=== PATIENT | male | born 1940 | race Hispanic/Latino ===

== ENCOUNTER 2017-06-05 10:21 | Observation (INO) | payer MEDICARE, MEDICAID ==
[2017-06-05 10:47] LABS: #Eosinphils 0.2 thou/uL (0.0-0.7); #Monocytes 0.9 thou/uL (0.11-0.59); %Basophils 0.4 % (0.0-1.0); %Lymphocytes 12.3 % (21.0-51.0); %Monocytes 10.8 % (0.0-10.0); %Neutrophils 74.5 % (42.0-75.0); Hemoglobin 15.9 g/dL (14.0-18.0); Mean Corpuscular HGB CONC 33.6 g/dL (32.0-36.0); Mean Corpuscular Hemoglobin 31.8 pg (27.0-31.0); Mean Corpuscular Volume 94.5 fl (80.0-94.0); Mean Platelet Volume 6.1 fL (7.4-10.4); Platelet Count 268 thou/uL (130-400); RBC Distribution Width 12.4 % (11.5-14.5); Red Blood Cell (RBC) Count 5.02 mill/uL (4.70-6.10); White Blood Cell (WBC) Count 8.1 thou/uL (4.8-10.8)
[2017-06-05 11:02] LABS: ALT (SGPT) 34 U/L (8-55); AST (SGOT) 21 U/L (5-34); Albumin 3.8 g/dL (3.4-4.8); Alkaline Phosphatase 96 U/L (40-150); Anion Gap 12 mmol/L (10-20); BUN (Urea Nitrogen) 15 mg/dL (8.4-25.7); Bilirubin, Total 0.6 mg/dL (0.2-1.2); CK (CPK) 42 U/L (30-200); Calc. Creatinine Clearance 0 mL/min (70-130); Carbon Dioxide 23 mmol/L (23-31); Chloride 107 mmol/L (98-107); Estimated GFR-MDRD 57; Globulin 3.1 g/dL (2.4-3.5); Glucose 175 mg/dL (83-110); Potassium 3.8 mmol/L (3.5-5.1); Protein, Total 6.9 g/dL (5.8-8.1); Sodium 138 mmol/L (136-145)
[2017-06-05 11:05] LABS: CKMB 0.7 ng/mL (0-6.6); Troponin I Less than 0.010 ng/mL (< 0.028)
[2017-06-05] MEDS ORDERED: Meclizine HCl 25 MG TAB ONE (11:23)
--- NOTE | 2017-06-05 12:11 | CT ---
CT OF THE BRAIN WITHOUT CONTRAST: History: Dizziness. Comparison: None. 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 There is mild to moderate chronic small vessel white matter ischemic change. No acute infarct , hemorrhage, or hydrocephalus is present. Skull and extracranial soft tissues are unremarkable appea ring. IMPRESSION: 1. No acute intracranial abnormality. 2. Chronic ischemic change as above. POS: NABEEL
[2017-06-05] MEDS ORDERED: Bisacodyl 5 MG TAB PO PRN (14:58)
[2017-06-05] MEDS ORDERED: Ondansetron HCl/PF 4 MG/2 ML Vial IVP PRN (14:58)
[2017-06-05] MEDS ORDERED: Ondansetron ODT 4 MG TAB PO PRN (14:58)
[2017-06-05] MEDS ORDERED: Acetaminophen 650 MG Suppository PR PRN (14:58)
[2017-06-05] MEDS ORDERED: Acetaminophen 325 MG TAB PO PRN (14:58)
[2017-06-05 15:32] VITALS: BP 177/86; TEMP 98.5; BMI 28.3
--- NOTE | 2017-06-05 16:49 | MRI ---
MRI BRAIN NONCONTRAST: 06/05/17 HISTORY: Dizziness, nystagmus. FINDINGS: There is no evidence of acute intracranial hemorrhage or infarct. chronic ischemic small vessel disea se is apparent throughout the periventricular white matter of each cerebral hemisphere. Old lacunar i nfarcts are noted at the basal ganglia. There is no mass effect or shift of midline structures. IMPRESSION: No acute intracranial abnormalities are demonstrated. POS: BASILIO
[2017-06-05] MEDS ORDERED: Meclizine HCl 25 MG TAB PO PRN (17:10)
[2017-06-05] MEDS ORDERED: Docusate 100 MG CAP PO SCH (21:00)
--- NOTE | 2017-06-05 21:53 | CON ---
DATE OF CONSULTATION: 06/05/2017 CONSULTING PHYSICIAN: Hospitalist Service. IMPRESSION: Acute vertigo with headache and nausea suggestive of either a cerebellar stroke or inner ear issue such as vestibular neuronitis. PLAN: MRI of the brain. HISTORY OF PRESENT ILLNESS: Mr. Rea is a 76-year-old male with a past history of hyperten maire, who fell on Friday. He lost his balance due to acute onset of dizziness. He struck his head o n the floor. He did not seek medical attention right away. He continued to have some headache and n ausea. He did not note any lateralized weakness or numbness. There was no double vision or slurred speech. His symptoms have improved somewhat. He has never had anything like this before. PAST MEDICAL HISTORY: Hypertension. SOCIAL HISTORY: No tobacco use. ALLERGIES: None reported. MEDICATIONS: Reviewed. FAMILY HISTORY: Noncontributory. REVIEW OF SYSTEMS: No prior history of any neurologic symptoms. PHYSICAL EXAMINATION: GENERAL: He is a healthy-appearing elderly gentleman, in no distress. HEENT: Pupils equal and reactive. Conjunctivae clear. Oropharynx is clear. NECK: Supple. EXTREMITIES: No cyanosis. NEUROLOGIC: He is alert and cooperative. His speech is fluent and clear. Cranial nerves were intac t with only a notable finding of asymmetric nystagmus and left gaze producing a horizontally beating eye movement. Motor exam showed symmetric strength. There was no fix or drift, no tremor or dysmetr ia was appreciated. Sensation was intact to touch. Gait was not tested. CT scan of the brain showed some chronic small vessel ischemic changes. SUMMARY: This is an elderly gentleman presents with acute vertigo raising concern for a stroke. Fur ther evaluation with MRI appears needed. Further evaluation if positive with carotid ultrasound and echocardiogram would be appropriate.
--- NOTE | 2017-06-05 23:33 | DIS ---
PRIMARY CARE PHYSICIAN: SHEBA Horowitz DIAGNOSES ON ADMISSION: 1. Closed head injury. 2. Vertigo. 3. Hypertension. 4. Elevated brain natriuretic peptide. DISCHARGE DIAGNOSES: 1. Closed head injury. 2. Concussion with resulting vertigo. 3. Hypertension. 4. Elevated brain natriuretic peptide. PROCEDURES: 1. CT of the brain showing old ischemic disease, but no acute changes. 2. MRI of the brain showing no acute stroke, hemorrhage, or other abnormality. LABORATORY DATA: Lab work notable for brain natriuretic peptide of 207. SUMMARY OF HOSPITAL COURSE: This is a 76-year-old male who was seen in the emergency room f or headache and vertigo. The patient initially seemed to be reporting vertigo leading to a fall and head injury in the ER. When I spoke to him with the senior web developer phone after he came up to the floor, the patient was very clear that the vertigo and headache did not start until after he tripped over so me furniture and hit his forehead. He had nausea and vomiting initially that resolved and then he davila s had some headache and vertigo ever since. The patient has actually done a little bit better with suzette hurtado in the emergency room, was able to walk steadily around the room during my exam. He had CT and MRI of the brain with the above results. Dr. Carter was consulted and discussion with him, he b elieves this is most likely a concussion with the resulting vertigo. The patient is disabled to get around, so he is safe for discharge home. He has been instructed to rest and not do anything that ex acerbates it and to give his brain time to heal and to follow up with his primary care physician next week. DISCHARGE MANAGEMENT: Discharged home. Follow up with primary care physician in 1 week. ACTIVITY: As tolerated. Do not do anything that causes the pain or dizziness to be worse. DIET: Healthy heart, low sodium diet. FOLLOWUP: The patient does need to follow up with his primary care physician about an elevated brain natriuretic peptide. DISCHARGE MEDICATIONS: 1. Coreg 6.25 mg twice a day. 2. Meclizine 25 mg every 8 hours as needed for dizziness, 30 tablets dispensed. 3. Acetaminophen extra strength 1000 mg every 6 hours as needed for headache, 30 tablets dispensed.
--- NOTE | 2017-06-06 00:02 | HP ---
PRIMARY CARE PHYSICIAN: Milagro SCRUGGS LANGUAGE: Senegalese speaking, minimal Latvian. Senegalese customer account specialist phone used during history a nd physical. CHIEF COMPLAINT: Dizziness and head injury. HISTORY OF PRESENT ILLNESS: This is a 76-year-old male who reports that on Friday, 3 days a go, the patient was getting out of bed to go to the bathroom, he tripped on some furniture, fell and hit the right side of his forehead against the floor. The patient reports that after the impact he h ad a significant headache, nausea and vomiting x1. The nausea and vomiting resolved, but he has had persistent vertigo ever since he hit his head. He says that the room feels like spinning around him. He feels unsteady on his feet. He went to his primary care physician and he told him to take Tylen ol for headache and he has not gotten any better for the last 3 days. So he came into the emergency room. In the emergency room, he was noted to have some nystagmus and had a negative CT of the head a nd so they put him in observation in the hospital. PAST MEDICAL HISTORY: Hypertension. PAST SURGICAL HISTORY: 1. Left nephrectomy. 2. Bilateral inguinal hernia repair. FAMILY HISTORY: No family history of stroke, diabetes or hypertension. SOCIAL HISTORY: No history of tobacco use, no history of alcohol or illicit drug use. The patient i s and lives with his . ALLERGIES: No known drug allergies. MEDICATIONS: Carvedilol 6.25 mg twice a day. REVIEW OF SYSTEMS: Constitutional: No fevers or chills. Eyes: No double vision or blurred vision. HEENT: He has had no congestion, drainage. A little bit of sore throat over the last couple of days. Cardiovascular: No chest pain, palpitations or racing heart. Pulmonary: Mild cough over the last couple of days. No shortness of breath, wheezing, or chest tightness. Gastrointestinal: No abdominal pain, no furt her nausea or vomiting as described in the HPI. No diarrhea or constipation. Genitourinary: No dys uria or hematuria. Musculoskeletal: He has pain to his right forehead where he impacted it, no neck pain, no back pain, no injuries to his extremities or any other musculoskeletal pain. Skin: He has an abrasion, contusion to the right forehead. Otherwise no skin rashes or other lesions that he has noticed. Neurologic: See HPI. PHYSICAL EXAMINATION: VITAL SIGNS: Blood pressure 177/86, pulse 66, respirations 17, O2 sat 98% on room air, temperature 9 8.5. GENERAL: This is a well-developed, well-nourished male in no apparent distress. HEENT: Pupils equal, round, and reactive to light. Oropharynx clear without lesions, erythema or ex udate. NECK: Supple, no lymphadenopathy, no thyroid nodules or enlargement, no JVD, no neck tenderness. He ad exam, patient does have a contusion with mild swelling on his right forehead with a little bit of abrasion to the skin, but no laceration. There is no bony deformity here. HEART: Regular rate and rhythm, no murmurs, rubs or gallops. LUNGS: Clear to auscultation bilaterally, no wheezes, crackles or rhonchi. ABDOMEN: Soft, nontender to palpation, normoactive bowel sounds, no hepatosplenomegaly or other mass es. EXTREMITIES: No clubbing, cyanosis or edema. SKIN: No rashes or other lesions besides the abrasion to his right forehead. NEUROLOGIC: On cranial nerve exam, patient does have nystagmus passing in segments to the left with leftward gaze, not with rightward gaze and some mild rotary component to it. Otherwise, his cranial nerves are intact and equal bilaterally. His deep tendon reflexes are equal in all extremities. He has good strength in all extremities. He has negative cerebellar exam. He was able to stand for me, which is better than he was able to do in the emergency room and states he feels better after the me clizine. He was able to stand and walk to the wheelchair to go down to MRI without any significant u nsteadiness or severe worsening of his symptoms. PSYCHIATRIC: Alert and oriented x3, normal mood an d affect. LABORATORY DATA: CBC within normal limits. Complete metabolic panel within normal limits except for glucose of 175 to the nonfasting specimen. Cardiac markers negative x1. Brain natriuretic peptide elevated at 207. CT of the brain, I did review the radiologist's report. It shows no evidence of in tracranial hemorrhage or other abnormality. There are some chronic ischemic changes; however, with a remote lacunar infarct to the right globus pallidusright caudate head and left thalamus. ASSESSMENT AND PLAN: 1. Closed head injury with a postconcussive syndrome. It is likely the cause of patient's vertigo a nd his initial nausea and vomiting that is now resolved as well as his persistent headache. It is un likely that he had any sort of a stroke as his symptoms did not start until after he tripped and hit his head. We are getting an MRI to rule out any sort of other etiology of these symptoms. Also Neur ology has been consulted. The MRI is negative. If Neurology agrees, then we can discharge him home and his can help care for him. He is able to get around okay and treat his headaches with Tylen ol for pain control and then rest. 2. Hypertension. Resume patient's home medications. 3. Elevated brain natriuretic peptide. The patient will need to follow up on this as an outpatient with his primary care doctor and possibly he will need an echocardiogram in the future. 4. Gastrointestinal prophylaxis. Put the patient on Pepcid twice a day and give him Zofran as neede d for nausea and vomiting. 5. Deep venous thrombosis prophylaxis. Sequential compression devices and TEDs while in bed and Darío enox subcutaneous. CODE STATUS: Patient is a FULL CODE.
[2017-06-06] MEDS ORDERED: Enoxaparin Sodium 40 MG/0.4 ML SYRINGE SC SCH (09:00)
--- NOTE | 2017-06-06 12:18 | EKG ---
Test Reason : DIZZY Blood Pressure : / mmHG Vent. Rate : 066 BPM Atrial Rate : 066 BPM P-R Int : 142 ms QRS Dur : 088 ms QT Int : 352 ms P-R-T Axes : 060 -38 011 degrees QTc Int : 369 ms Normal sinus rhythm Left axis deviation Nonspecific T wave abnormality Abnormal ECG Confirmed by STEVEN DUPREE ([id number]), editor newspaper NIDIA PEGUERO ([id number]) on 06/06/2017 12:18:25 PM Referred By: Confirmed By:STEVEN DUPREE
== END 2017-06-05 17:59 | disposition home or self-care (01) ==
LOC: ERS 10:21 → 2SE 14:53
PROVIDERS: ADMIT Emergency Medicine; ATTEND Emergency Medicine
DX: S06.0X0A Concussion without loss of consciousness, initial encounter (principal); I10 Essential (primary) hypertension; R79.89 Other specified abnormal findings of blood chemistry; H55.00 Unspecified nystagmus; R42 Dizziness and giddiness; W01.190A Fall on same level from slipping, tripping and stumbling with subsequent striking against furniture, initial encounter; Z79.899 Other long term (current) drug therapy; Z90.5 Acquired absence of kidney; Z98.890 Other specified postprocedural states
CPT/HCPCS: 36415; 70450; 70551; 80053; 82553; 83880; 84484; 85025; 93005

== ENCOUNTER 2017-06-07 16:37 | Emergency (ER) | payer MEDICARE, MEDICAID ==
[2017-06-07] MEDS ORDERED: Ondansetron ODT 8 MG TAB ONE (19:18)
== END 2017-06-07 19:58 | disposition home or self-care (01) ==
LOC: ERS 16:37
DX: F07.81 Postconcussional syndrome (principal); G44.309 Post-traumatic headache, unspecified, not intractable; I10 Essential (primary) hypertension; Z79.899 Other long term (current) drug therapy
CPT/HCPCS: 96372

== ENCOUNTER 2017-10-08 08:13 | Outpatient (CLI) | payer MEDICARE, MEDICAID | END 2017-10-08 08:14 | disposition home or self-care (01) | LOC: BICRAD 08:13 | PROVIDERS: ATTEND Internal Medicine | DX: S39.012A Strain of muscle, fascia and tendon of lower back, initial encounter (principal); M47.896 Other spondylosis, lumbar region | CPT/HCPCS: 72100 ==

== ENCOUNTER 2017-11-03 13:27 | Emergency (ER) | payer MEDICARE, MEDICAID ==
[2017-11-03] MEDS ORDERED: Cyclobenzaprine 10 MG TAB ONE (14:57)
== END 2017-11-03 16:02 | disposition home or self-care (01) ==
LOC: ERS 13:27
DX: M54.5 Low back pain (principal); I10 Essential (primary) hypertension; Z79.899 Other long term (current) drug therapy
CPT/HCPCS: 99283

== ENCOUNTER 2017-12-05 08:56 | Observation (INO) | payer MEDICARE, MEDICAID ==
[2017-12-05] MEDS ORDERED: Promethazine HCl 25 MG/ML VIAL ONE (09:27)
[2017-12-05] MEDS ORDERED: Meclizine HCl 25 MG TAB ONE (09:27)
[2017-12-05 10:27] LABS: #Basophils 0.1 thou/uL (0.0-0.2); #Eosinphils 0.1 thou/uL (0.0-0.7); #Lymphocytes 2.4 thou/uL (1.20-3.40); #Monocytes 0.8 thou/uL (0.11-0.59); #Neutrophils 6.9 thou/uL (1.40-6.50); %Basophils 0.7 % (0.0-1.0); %Eosinophils 1.2 % (0.0-10.0); %Lymphocytes 23.6 % (21.0-51.0); %Monocytes 7.4 % (0.0-10.0); %Neutrophils 67.1 % (42.0-75.0); Hemoglobin 16.2 g/dL (14.0-18.0); Mean Corpuscular HGB CONC 34.3 g/dL (32.0-36.0); Mean Corpuscular Hemoglobin 31.4 pg (27.0-31.0); Mean Corpuscular Volume 91.5 fL (78.0-98.0); Mean Platelet Volume 6.5 fL (7.4-10.4); Platelet Count 258 thou/uL (130-400); RBC Distribution Width 12.4 % (11.5-14.5); Red Blood Cell (RBC) Count 5.17 mill/uL (4.70-6.10); White Blood Cell (WBC) Count 10.3 thou/uL (4.8-10.8)
[2017-12-05 10:35] LABS: ALT (SGPT) 23 U/L (8-55); AST (SGOT) 20 U/L (5-34); Albumin 4.1 g/dL (3.4-4.8); Alkaline Phosphatase 99 U/L (40-150); Anion Gap 10 mmol/L (10-20); BUN (Urea Nitrogen) 21 mg/dL (8.4-25.7); Calc. Creatinine Clearance 0 mL/min (70-130); Calcium 9.1 mg/dL (7.8-10.44); Carbon Dioxide 23 mmol/L (23-31); Chloride 108 mmol/L (98-107); Estimated GFR-MDRD 47; Globulin 3.4 g/dL (2.4-3.5); Glucose 162 mg/dL (83-110); Potassium 4.1 mmol/L (3.5-5.1); Protein, Total 7.5 g/dL (5.8-8.1); Sodium 137 mmol/L (136-145)
--- NOTE | 2017-12-05 11:07 | RAD ---
PORTABLE CHEST: HISTORY: Headache. COMPARISON: 09/28/13. FINDINGS: Density in the left lung base obscuring the CP angle could represent infiltrate or atelectasis. Lung phelan otherwise appear clear. Calcified nodular densities overlying the left upper lung are stable . No evidence of vascular congestion or edema. Heart and mediastinum are unremarkable. IMPRESSION: Question atelectasis or infiltrate in the left lung base. POS: [facility]
--- NOTE | 2017-12-05 11:16 | CT ---
CT HEAD WITHOUT CONTRAST: Date: 12/05/17 Multiple axial tomograms obtained through the head without IV enhancement. INDICATION: Hypertension. Dizziness. COMPARISON: CT head dated 06/05/17. FINDINGS: The ventricles remain normal size and position. Moderate to severe chronic ischemic white matter bruno ges are again noted. Evidence of old lacunar infarcts are again seen involving bilateral basal gangli a and left thalamus. No evidence of acute hemorrhage. No evidence of acute cortical infarct or mass. Sinuses and mastoids remain clear. IMPRESSION: Moderate to severe chronic ischemic white matter changes and evidence of old lacunar infarcts. No acu te hemorrhage identified. POS: NABEEL
--- NOTE | 2017-12-05 13:39 | HP ---
PRIMARY CARE PHYSICIAN: [facility] call admission. REASON FOR ADMISSION: Hypertensive urgency, dizziness. HISTORY OF PRESENT ILLNESS: A 76-year-old male who is Solomon Islander speaking only. History obtained with help of concrete products dispatcher. The patient has history of hypertension. He came to the emergency room with a complaint of dizziness, headache, nausea and vomiting. He describes headache localized in the front of the head. He describes dizziness with changing his position, associated with nausea and vomiting. The patient was having difficulty walking to the bathroom, but he was not unsteady. He did not have any fall. He denies any focal motor symptoms. He denies any diarrhea, abdominal pain, constipation , melena. He denies any UTI symptoms. He denies any chest pain, palpitation. He denies any dyspnea. When he presented to emergency room, his blood pressure was 219/120. The patient reports that he took morning medicine for his blood pressure, but after that he threw out with vomiting and his blood pressure was going up. In the emergency room, the patient had CT brain which was negative. He was given meclizine. The patient is being admitted to telemetry floor for observation for dizziness and for further evaluation. The patient did not have any recent upper respiratory infection. He denies any tinnitus. He denies any neck pain. He denies any fall. REVIEW OF SYSTEMS: The following complete review of systems was negative, unless otherwise mentioned in the HPI or below: Constitutional: Weight loss or gain, ability to conduct usual activities. Skin: Rash, itching. Eyes: Double vision, pain. ENT/Mouth: Nose bleeding, neck stiffness, pain, tenderness. Cardiovascular: Palpitations, dyspnea on exertion, orthopnea. Respiratory: Shortness of breath, wheezing, cough, hemoptysis, fever or night sweats. Gastrointestinal: Poor appetite, abdominal pain, heartburn, nausea, vomiting, constipation, or diarrhea. Genitourinary: Urgency, frequency, dysuria, nocturia. Musculoskeletal: Pain, swelling. Neurologic/Psychiatric: Anxiety, depression. Allergy/Immunologic: Skin rash, bleeding tendency. Please see my HPI for pertinent positive and negative. All other review of systems reviewed and negative except as mentioned in the HPI. PAST MEDICAL HISTORY: Hypertension, history of renal cell carcinoma that required nephrectomy on the left side. PAST SURGICAL HISTORY: Nephrectomy on the left side. Bilateral inguinal hernia repair. PAST PSYCHIATRY HISTORY: Reviewed and negative SOCIAL HISTORY: Patient is . His is present at bedside. No history of tobacco, alcohol or illicit drug abuse. FAMILY HISTORY: No strong family history of premature coronary artery disease, stroke or cancer. ALLERGIES: No known drug allergy. CURRENT HOME MEDICATIONS: Coreg 6.25 mg p.o. b.i.d. EMERGENCY ROOM COURSE: Patient is given IV fluid, Phenergan 12.5 mg, meclizine 50 mg. PHYSICAL EXAMINATION: VITAL SIGNS: On arrival, blood pressure was 219/120, pulse 89, respiratory rate 20, temperature 97.4, saturation 91% on room air, weight 81.6 kilograms. GENERAL: The patient is currently alert, awake, no obvious acute distress. HEENT: Head is normocephalic, atraumatic. Eyes; pupils round, reactive to light. Horizontal nystagmus noted. ENT: Oropharynx within normal limits. No pharyngeal erythema, no exudate. Ear examination is normal. NECK: Supple, no JVD, no thyromegaly, no carotid bruit. LUNGS: Clear to auscultation without any rhonchi or rales. CARDIAC: S1, S2 regular without any murmur. ABDOMEN: Soft, bowel sounds present, nontender, nondistended. No organomegaly , no mass, no suprapubic tenderness. BACK: Unremarkable, no CVA tenderness. EXTREMITIES: Upper extremity passive movement of all joints are normal. Lower extremities: No edema. Good peripheral pulsation. SKIN: No skin rash. HEMATOLOGIC: No lymphadenopathy. PSYCHIATRIC: Normal affect. NEUROLOGIC: The patient is alert, oriented x3. Cranial nerves II-XII intact except horizontal nystagmus. Motor 5/5 in all 4 limbs. Sensation bilaterally symmetrical. Reflexes bilaterally symmetrical. No cerebellar sign. Plantar bilateral flexor. PSYCHIATRIC: Normal affect. SIGNIFICANT LABORATORY DATA: EKG showing normal sinus rhythm, incomplete RBBB pattern. Chest x-ray showing questionable atelectasis in the left lung base. CT brain based on my review, no acute intracranial process. CBC: WBC 10.3, hemoglobin 16.2, platelet 258. BMP; sodium 137, potassium 4.1, chloride 108, carbon dioxide 23, anion gap 10, BUN 21, creatinine 1.46, glucose 162, calcium 9.1. LFT: AST 20, ALT 23, alkaline phosphatase 99, albumin 4.1. ASSESSMENT AND PLAN: 1. Dizziness, most likely based on clinical assessment I am suspecting that this patient has benign positional vertigo. Given horizontal nystagmus and his previous history of renal cell carcinoma, metastatic lesion needs to be excluded. Does not suspect any cerebellar pathology given the patient does not have any clearcut cerebellar sign. His history is also a little bit worrisome for labyrinthitis. At this point to rule out central versus peripheral etiology of dizziness/vertigo, we will do MRI and we will treat him symptomatically with meclizine 25 mg t.i.d. scheduled. We will also consult physical therapy evaluation for his gait assessment. I will keep him in 24 hours in hospital. We will also monitor on telemetry floor to rule out any kind of arrhythmia and rule out cardiac etiology. We will do serial cardiac enzymes x3. We will monitor patient's blood pressure and change blood pressure medication accordingly. Remote differential is cervical spondylolysis, but the patient does not have any neck pain, does not have any radicular symptoms, so that is unlikely. His electrocardiogram and routine blood test is also unremarkable at this point. Hypertension related symptoms is less likely given his blood pressure is not super high at this point, and still the patient's symptoms are persistent in the emergency room despite treatment, 2. Hypertension with hypertensive urgency on admission, but currently resolved with emergency room treatment. We will monitor on telemetry floor and do serial monitoring of vitals and change blood pressure medication accordingly. 3. Chronic kidney disease stage 3. We will monitor renal function and avoid nephrotoxin agent. 4. History of renal cell carcinoma with nephrectomy on the left side. 5. Deep venous thrombosis prophylaxis not needed because we are expecting discharge in 24 hours. 6. Gastrointestinal prophylaxis, Pepcid 20 mg p.o. b.i.d. 7. Code status: The patient is FULL CODE. The patient's is surrogate decision maker. Disposition plan based on clinical course, likely within 24 hours. Plan of care discussed with the patient and his at bedside in the emergency room. BERNARDOD
[2017-12-05] MEDS ORDERED: Ondansetron ODT 4 MG TAB SL PRN (14:27)
[2017-12-05] MEDS ORDERED: Ondansetron HCl/PF 4 MG/2 ML Vial IVP PRN ×2 (14:27→14:31)
[2017-12-05] MEDS ORDERED: Promethazine HCl 25 MG/ML VIAL SLOW IVP PRN (14:30)
[2017-12-05] MEDS ORDERED: Loratadine 10 MG TAB PO PRN (14:31)
[2017-12-05] MEDS ORDERED: Artificial Tears 18 DROP/0.9 ML EA EYE PRN (14:31)
[2017-12-05] MEDS ORDERED: Chloraseptic Spray 180 ml Bottle PO PRN (14:31)
[2017-12-05] MEDS ORDERED: Ondansetron ODT 4 MG TAB PO PRN (14:31)
[2017-12-05] MEDS ORDERED: Loperamide HCl 2 MG CAP PO PRN (14:31)
[2017-12-05] MEDS ORDERED: Mag-Al 1200 mg/1200 mg/30 ML UDCUP PO PRN (14:31)
[2017-12-05] MEDS ORDERED: Milk Of Magnesia 30 ML UDCUP PO PRN (14:31)
[2017-12-05] MEDS ORDERED: hydrALAZINE 20 MG/ML VIAL SLOW IVP PRN (14:31)
[2017-12-05] MEDS ORDERED: Eucerin (Mineral Oil/Petrolatum,White) 30 gm Jar TOP PRN (14:31)
[2017-12-05] MEDS ORDERED: Sodium Chloride 0.65% Nasal 44 ML BOT EA NARE PRN (14:31)
[2017-12-05] MEDS ORDERED: Diabetic Tussin 200 MG/10 ML UDCUP PO PRN (14:31)
[2017-12-05] MEDS ORDERED: Meclizine HCl 25 MG TAB PO SCH ×3 (14:31→15:00)
[2017-12-05] MEDS ORDERED: Senokot 8.6 MG TAB PO PRN (14:31)
[2017-12-05] MEDS ORDERED: Acetaminophen 325 MG TAB PO PRN (14:31)
[2017-12-05] MEDS ORDERED: Zolpidem Tartrate 5 MG TAB PO PRN (14:31)
[2017-12-05] MEDS: Sodium Chloride 0.9% 1,000 ML IV SCH ×2 (14:57→21:28)
[2017-12-05 15:37] LABS: CKMB 1.6 ng/mL (0-6.6); Troponin I Less than 0.010 ng/mL (< 0.028)
--- NOTE | 2017-12-05 16:01 | MRI ---
MRI BRAIN NONCONTRAST: 12/05/17 HISTORY: Dizziness. Headaches. COMPARISON: 06/05/17. FINDINGS: There is no evidence of acute intracranial hemorrhage or infarct. Diffuse cortical atrophy, chronic i schemic changes, and old lacunar infarcts appear stable. There is no mass effect or shift of midline structures. The visualized paranasal sinuses remain well aerated. IMPRESSION: Chronic type findings are stable. No acute intracranial abnormalities are demonstrated on noncontrast CT head. POS: NABEEL
[2017-12-05] MEDS: Carvedilol 6.25 MG TAB PO SCH (16:42)
[2017-12-05 18:42] LABS: CKMB 1.6 ng/mL (0-6.6); Troponin I Less than 0.010 ng/mL (< 0.028)
[2017-12-05] MEDS: HYDROcodone/Acetaminophen 5/325 mg Tablet PO PRN (21:26)
[2017-12-05] MEDS: Meclizine HCl 25 MG TAB PO SCH (21:27)
[2017-12-05] MEDS: Famotidine 20 MG TAB PO SCH (21:27)
[2017-12-06] MEDS: Carvedilol 6.25 MG TAB PO SCH (04:37)
[2017-12-06 04:55] LABS: #Lymphocytes 1.5 thou/uL (1.20-3.40); #Monocytes 0.8 thou/uL (0.11-0.59); #Neutrophils 6.3 thou/uL (1.40-6.50); %Basophils 0.1 % (0.0-1.0); %Eosinophils 0.5 % (0.0-10.0); %Lymphocytes 17.8 % (21.0-51.0); %Monocytes 8.6 % (0.0-10.0); %Neutrophils 73.1 % (42.0-75.0); Hemoglobin 14.6 g/dL (14.0-18.0); Mean Corpuscular Hemoglobin 30.3 pg (27.0-31.0); Mean Corpuscular Volume 91.9 fL (78.0-98.0); Mean Platelet Volume 6.2 fL (7.4-10.4); Platelet Count 236 thou/uL (130-400); RBC Distribution Width 12.4 % (11.5-14.5); Red Blood Cell (RBC) Count 4.81 mill/uL (4.70-6.10); White Blood Cell (WBC) Count 8.7 thou/uL (4.8-10.8)
[2017-12-06 04:57] LABS: Bilirubin Negative (Negative); Blood, Urine Negative (Negative); Clarity CLEAR (Clear); Glucose, Urine (Dipstick) Negative (Negative); Leukocyte Negative (Negative); Nitrite Negative (Negative); Protein, Urine (Dipstick) Negative (Neg-Trace); Specific Gravity, Urine 1.011 (1.002-1.036); Urobilinogen 0.2 mg/dL (0.2-1.0); pH, Urine 6.5 (5.0-9.0)
[2017-12-06 05:00] LABS: Bacteria/HPF None Seen HPF (None Seen); Hyaline Casts/LPF 0-3 HYALINE CAST LPF (0-3 Hyaline); RBC/HPF 0-3 HPF (0-3); Squamous Epithelial None Seen HPF (0-3); WBC/HPF None Seen HPF (0-3)
[2017-12-06 05:12] LABS: Anion Gap 9 mmol/L (10-20); BUN (Urea Nitrogen) 15 mg/dL (8.4-25.7); Calc. Creatinine Clearance 67 mL/min (70-130); Calcium 8.8 mg/dL (7.8-10.44); Carbon Dioxide 25 mmol/L (23-31); Cardiac Risk 3.7 (Less than 4.5); Chloride 109 mmol/L (98-107); Cholesterol 152 mg/dl (< 200 Desired); Estimated GFR-MDRD 67; Glucose 116 mg/dL (83-110); HDL Cholesterol 41 mg/dL (>60 Neg Risk); LDL Cholesterol, Calculated 88 mg/dL; Potassium 4.7 mmol/L (3.5-5.1); Sodium 138 mmol/L (136-145); Triglycerides 115 mg/dL (Less than 150)
[2017-12-06] MEDS: Meclizine HCl 25 MG TAB PO SCH (05:15)
[2017-12-06] MEDS: Famotidine 20 MG TAB PO SCH (08:21)
[2017-12-06] MEDS: HYDROcodone/Acetaminophen 5/325 mg Tablet PO PRN (08:25)
--- NOTE | 2017-12-06 10:39 | ULT ---
CAROTID DOPPLER: Date: 12/06/17 Ultrasound Doppler study is performed on the extracranial carotid arteries. Color Doppler with spectr al analysis and velocity recordings obtained. INDICATION: Dizziness. FINDINGS: Ultrasound images show mild echogenic plaque in both bulb regions. Velocity recordings are normal bilaterally. There is no evidence of hemodynamically significant steno sis identified in either extracranial carotid system. The vertebral arteries show antegrade flow. IMPRESSION: 1. Mild echogenic plaque bilaterally. 2. No evidence of stenosis. POS: NABEEL
[2017-12-06 12:05] VITALS: BP 147/74; TEMP 98.2
--- NOTE | 2017-12-07 00:02 | DIS ---
DATE OF ADMISSION: 12/05/2017 DATE OF DISCHARGE: 12/06/2017 CONDITION AT THE TIME OF DISCHARGE: Stable and improved. DISCHARGE DIAGNOSES: 1. Vertigo, likely benign positional. 2. Hypertension. 3. History of renal cell carcinoma, status post left-sided nephrectomy. 4. Acute renal insufficiency, resolved. PROCEDURES DONE IN THE HOSPITAL: 1. CT scan of the brain, which shows evidence of old lacunar infarction. 2. Chest x-ray, which is negative for any infiltrate or edema. 3. MRI of the brain, which shows chronic type findings, no acute infarction. 4. Carotid Doppler ultrasound, which is negative for any hemodynamically significant stenosis bilate rally. DISCHARGE MEDICATIONS: Meclizine t.i.d. as needed. Resume Coreg 6.25 daily and Tylenol as needed. PRIMARY CARE PHYSICIAN: Amilcar Jc MD DISCHARGE DISPOSITION: Home. HISTORY OF PRESENT ILLNESS: Mr. Álvaro Jamison is a 76-year-old male with history of hypertens ion and renal cell carcinoma, status post nephrectomy, who presented to the emergency room with compl aints of dizziness. He also had headache, nausea, and vomiting on presentation. He also had difficu lty walking and was unsteady. Upon presentation, his blood pressure was elevated at 219/120. CT sca n of the brain and chest x-ray was unremarkable. His labs were unremarkable. EKG showed normal sinu s rhythm. Chest x-ray with possible left base atelectasis. His creatinine was slightly bumped up to 1.46. He was admitted for further evaluation of his dizziness and was started on empiric meclizine. MRI of the brain was ordered. Please see admission history and physical for further details. HOSPITAL COURSE: The patient had [id number] improvement in his symptoms. His orthostatics wer e checked and were negative. His cardiac enzymes were trended and were negative. Lipid panel was un remarkable. His renal function improved with gentle IV fluid hydration. MRI of the brain was negati ve. Carotid Doppler ultrasound was negative. At this time, his symptoms are most likely secondary to vertigo. He is instructed and given prescrip tion to take meclizine as needed and he is referred to outpatient dizzy and balance program and gait instability program for rehabilitation. Discharge plan was discussed with the patient and his family and they verbalized understanding. All questions were answered. He was seen and examined prior to discharge. PHYSICAL EXAMINATION: VITAL SIGNS: This morning vital signs are stable. Blood pressure 147/74, temperature 98.2, heart ra te 63, respirations 18, saturating 94% on room air. GENERAL: No acute distress, awake, alert, oriented x3. CHEST: Clear to auscultation bilaterally. Rate and rhythm regular without any murmur, rubs or chacko ps. DISCHARGE INSTRUCTIONS: The patient is instructed to follow up with the primary care physician in 7- 10 days and return to the ER if symptoms worsen.
--- NOTE | 2017-12-13 12:23 | EKG ---
Test Reason : Blood Pressure : / mmHG Vent. Rate : 062 BPM Atrial Rate : 062 BPM P-R Int : 154 ms QRS Dur : 094 ms QT Int : 422 ms P-R-T Axes : 053 -25 011 degrees QTc Int : 428 ms Normal sinus rhythm Normal ECG Confirmed by HEIDI MACHADO MD ([id number]), publishing editor BRIE MCCARTHY ([id number]) on 12/13/2017 12:23:28 PM Referred By: Confirmed By:HEIDI MACHADO MD
== END 2017-12-06 12:50 | disposition home or self-care (01) ==
LOC: ERS 08:56 → 2SW 14:30
PROVIDERS: ADMIT Internal Medicine; ATTEND Internal Medicine
DX: R42 Dizziness and giddiness (principal); I16.0 Hypertensive urgency; I10 Essential (primary) hypertension; N28.9 Disorder of kidney and ureter, unspecified; Z85.528 Personal history of other malignant neoplasm of kidney; Z79.899 Other long term (current) drug therapy
CPT/HCPCS: 70450; 70551; 71045; 80048; 80053; 80061; 81001; 82553 ×2; 84484 ×2; 85025 ×2; 93005; 93880; 96361; 96365; 96366; 97116; 97139; 99285; G0378; G8978; G8979; 36415; A4216; J0360; J2550; Q0162

== ENCOUNTER 2017-12-17 11:46 | Outpatient (CLI) | payer MEDICARE, MEDICAID | END 2017-12-17 11:47 | disposition home or self-care (01) | LOC: BICRAD 11:46 | PROVIDERS: ATTEND Internal Medicine | DX: R91.8 Other nonspecific abnormal finding of lung field (principal) | CPT/HCPCS: 71046 ==

== ENCOUNTER 2020-02-16 15:18 | Outpatient (CLI) | payer MEDICARE, MEDICAID ==
--- NOTE | 2020-02-16 16:18 | MRI ---
MRI lumbar spine noncontrast HISTORY: Low back pain with right leg radiculopathy for 6 months. FINDINGS: The conus medullaris has normal appearance. Vertebral body heights are maintained. There is desiccation of all of the intervertebral discs with the exception of L1-2. T12-L1, L1-2, L2-3: Mild osteophytosis. Central canal and neural foramina are patent. L3-4: Disc space narrowing. Posterior disc bulge slightly compresses the origin of the right L4 nerve root.. Thecal sac is patent. Osseous hypertrophy of the facets. Severe bilateral foraminal stenoses. L4-5: Disc space narrowing. Minimal degenerative spondylolisthesis. Osteophytosis of the facets. Mild to moderate bilateral foraminal stenoses. L5-S1: Minimal degenerative spondylolisthesis. Thecal sac is patent. Osseous hypertrophy of the facet s. Moderate right and severe left foraminal stenoses. IMPRESSION : Degenerative changes throughout the lumbar spine with foraminal stenoses as detailed above, greatest on the left at the lumbosacral junction. Small disc protrusion at the L3-4 level contacts the origin of the right L4 nerve root. Clinical correlation regarding the right L4 and left L5 dermatome is required.
== END 2020-02-16 15:19 | disposition home or self-care (01) ==
LOC: BICMRI 15:18
DX: M54.5 Low back pain (principal); M47.816 Spondylosis without myelopathy or radiculopathy, lumbar region; M48.061 Spinal stenosis, lumbar region without neurogenic claudication; M51.26 Other intervertebral disc displacement, lumbar region
CPT/HCPCS: 72148

== ENCOUNTER 2020-04-11 13:56 | Outpatient (CLI) | payer MEDICARE, MEDICAID ==
--- NOTE | 2020-04-11 14:38 | ULT ---
Ultrasound of theurinary bladder: 04/11/2020 COMPARISON:None available HISTORY:Evaluate post void residua, BPH TECHNIQUE: Multiplanar grayscale sonographic imaging of theurinary bladder FINDINGS:Post void imaging of the urinary bladder demonstrates the prostate gland be heterogeneous an d enlarged, measuring approximately 5.5 x 5.4 x 5.2 cm. Urinary bladder contains approximately 22 cc of urine. IMPRESSION: 22 cc post void residual.
--- NOTE | 2020-04-11 15:30 | RAD ---
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 Bowel gas pattern is unobstructe d. Lung bases clear. No acute osseous abnormality is evident. No suspicious calcifications evident. IMPRESSION:No large amount of retained stool within colon.
== END 2020-04-11 13:57 | disposition home or self-care (01) ==
LOC: BICULT 13:56
PROVIDERS: ATTEND Internal Medicine
DX: N40.0 Benign prostatic hyperplasia without lower urinary tract symptoms (principal); K59.00 Constipation, unspecified
CPT/HCPCS: 74018; 76856

== ENCOUNTER 2021-02-14 10:20 | Outpatient (CLI) | payer MEDICARE, OTHER | END 2021-02-14 10:21 | disposition home or self-care (01) | LOC: TBSIIMAG 10:20 | PROVIDERS: ATTEND Nurse Practitioner Family | DX: M54.5 Low back pain (principal); G89.29 Other chronic pain; M47.816 Spondylosis without myelopathy or radiculopathy, lumbar region; Z85.528 Personal history of other malignant neoplasm of kidney; Z90.5 Acquired absence of kidney | CPT/HCPCS: 72148 ==

== ENCOUNTER 2022-05-07 11:27 | Observation (INO) | payer OTHER ==
[2022-05-07 12:14] LABS: #Lymphocytes 1.1 thou/uL (1.20-3.40); #Monocytes 0.6 thou/uL (0.11-0.59); #Neutrophils 7.3 thou/uL (1.40-6.50); %Eosinophils 0.1 % (0.0-10.0); %Lymphocytes 12.4 % (21.0-51.0); %Monocytes 6.7 % (0.0-10.0); %Neutrophils 80.8 % (42.0-75.0); Hemoglobin 14.2 g/dL (14.0-18.0); Mean Corpuscular HGB CONC 32.9 g/dL (32.0-36.0); Mean Corpuscular Hemoglobin 27.3 pg (27.0-31.0); Mean Corpuscular Volume 82.7 fl (78.0-98.0); Mean Platelet Volume 7.3 fL (7.4-10.4); Platelet Count 290 10x3/uL (130-400); RBC Distribution Width 15.1 % (11.5-14.5); Red Blood Cell (RBC) Count 5.19 mill/uL (4.70-6.10); White Blood Cell (WBC) Count 9.1 10x3/uL (4.8-10.8)
[2022-05-07 12:36] LABS: ALT (SGPT) 23 U/L (8-55); AST (SGOT) 17 U/L (5-34); Albumin 3.9 g/dL (3.4-4.8); Alkaline Phosphatase 121 U/L (40-110); Anion Gap 13 mmol/L (10-20); BUN (Urea Nitrogen) 15 mg/dL (8.4-25.7); Bilirubin, Total 0.5 mg/dL (0.2-1.2); Calc. Creatinine Clearance 0 mL/min (70-130); Calcium 8.8 mg/dL (7.8-10.44); Carbon Dioxide 22 mmol/L (23-31); Chloride 109 mmol/L (98-107); Estimated GFR 53; Globulin 3.2 g/dL (2.4-3.5); Glucose 128 mg/dL (83-110); Potassium 4.3 mmol/L (3.5-5.1); Protein, Total 7.1 g/dL (5.8-8.1); Sodium 140 mmol/L (136-145)
[2022-05-07] MEDS ORDERED: Meclizine HCl 25 MG TAB ONE (14:28)
[2022-05-07] MEDS ORDERED: Ondansetron ODT 4 MG TAB ONE (14:28)
[2022-05-07] MEDS ORDERED: Diazepam 10 MG/2 ML SYRINGE ONE (15:31)
[2022-05-07] MEDS ORDERED: Senokot S 8.6-50 MG TAB PO PRN (15:49)
[2022-05-07] MEDS ORDERED: Lactated Ringer's 1,000 ML IV SCH (16:00)
[2022-05-07 16:10] LABS: Hemoglobin A1c 5.7 % (4.0-6.0)
[2022-05-07 18:31] VITALS: BMI 28.8
[2022-05-07] MEDS ORDERED: Atorvastatin Calcium 40 MG TAB PO SCH (21:00)
[2022-05-07] MEDS: Acetaminophen 325 MG TAB PO PRN (21:00)
[2022-05-07] MEDS ORDERED: Famotidine 20 MG TAB PO SCH (21:00)
[2022-05-07] MEDS ORDERED: Amlodipine 5 MG TAB PO SCH (21:00)
[2022-05-08 02:01] LABS: SARS-CoV-2 NAA Rapid Test Not Detected (NotDetected)
[2022-05-08 05:39] LABS: #Eosinphils 0.1 thou/uL (0.0-0.7); #Lymphocytes 2.1 thou/uL (1.20-3.40); #Neutrophils 5.6 thou/uL (1.40-6.50); %Basophils 0.5 % (0.0-1.0); %Eosinophils 0.9 % (0.0-10.0); %Lymphocytes 23.5 % (21.0-51.0); %Monocytes 11.3 % (0.0-10.0); %Neutrophils 63.7 % (42.0-75.0); Hemoglobin 13.1 g/dL (14.0-18.0); Mean Corpuscular HGB CONC 32.7 g/dL (32.0-36.0); Mean Corpuscular Hemoglobin 27.3 pg (27.0-31.0); Mean Corpuscular Volume 83.6 fl (78.0-98.0); Mean Platelet Volume 7.3 fL (7.4-10.4); Platelet Count 261 10x3/uL (130-400); RBC Distribution Width 14.9 % (11.5-14.5); Red Blood Cell (RBC) Count 4.79 mill/uL (4.70-6.10); White Blood Cell (WBC) Count 8.8 10x3/uL (4.8-10.8)
[2022-05-08] MEDS: Acetaminophen 325 MG TAB PO PRN (06:09)
[2022-05-08 06:11] LABS: Anion Gap 9 mmol/L (10-20); BUN (Urea Nitrogen) 14 mg/dL (8.4-25.7); Calc. Creatinine Clearance 59 mL/min (70-130); Calcium 8.7 mg/dL (7.8-10.44); Carbon Dioxide 24 mmol/L (23-31); Cardiac Risk 3.6 (Less than 4.5); Chloride 109 mmol/L (98-107); Cholesterol 163 mg/dl (< 200 Desired); Estimated GFR 65; Glucose 92 mg/dL (83-110); HDL Cholesterol 45 mg/dL (>60 Neg Risk); LDL Cholesterol, Calculated 91 mg/dL; Potassium 4.3 mmol/L (3.5-5.1); Sodium 138 mmol/L (136-145); Triglycerides 131 mg/dL (Less than 150)
[2022-05-08] MEDS ORDERED: Lisinopril 10 MG TAB PO SCH (09:00)
[2022-05-08] MEDS ORDERED: Enoxaparin Sodium 40 MG/0.4 ML SYRINGE SC SCH (09:00)
[2022-05-08] MEDS ORDERED: Aspirin 81 mg Enteric Coated Tablet PO SCH (09:00)
[2022-05-08 12:56] VITALS: TEMP 99.7
[2022-05-08] MEDS ORDERED: cloNIDine 0.1 MG TAB PO SCH ×2 (13:45→21:00)
[2022-05-08 16:49] VITALS: BP 154/100
[2022-05-08] MEDS ORDERED: Famotidine 20 MG TAB PO SCH (21:00)
[2022-05-10] MEDS ORDERED: FLU VACC QS2022-23(65YR UP)/PF 240 MCG/0.7 ML SYRINGE IM ONE (09:00)
== END 2022-05-08 18:33 | disposition home or self-care (01) ==
LOC: ERS 11:27 → NEURO 18:11
PROVIDERS: ADMIT Student in an Organized Health Care Education/Training Program; ATTEND Internal Medicine
DX: G45.9 Transient cerebral ischemic attack, unspecified (principal); R42 Dizziness and giddiness; R51.9 Headache, unspecified; I13.0 Hypertensive heart and chronic kidney disease with heart failure and stage 1 through stage 4 chronic kidney disease, or unspecified chronic kidney disease; I50.32 Chronic diastolic (congestive) heart failure; N18.2 Chronic kidney disease, stage 2 (mild); Z86.73 Personal history of transient ischemic attack (TIA), and cerebral infarction without residual deficits; Z85.528 Personal history of other malignant neoplasm of kidney; Z90.5 Acquired absence of kidney; E78.5 Hyperlipidemia, unspecified; D64.89 Other specified anemias; I67.9 Cerebrovascular disease, unspecified; Z23 Encounter for immunization; Z20.822 Contact with and (suspected) exposure to COVID-19; Z79.899 Other long term (current) drug therapy
CPT/HCPCS: 0240U; 70450; 70551; 80048; 80053; 80061; 83036; 84484; 85025 ×2; 90662; 93005; 93306; 93880; 96372; 97116; 97535; G0008; G0378 ×3; 36415; 90471; J1650; J3360; J7120; Q0162

== ENCOUNTER 2022-05-26 23:54 | Emergency (ER) | payer OTHER ==
[2022-05-27 00:53] LABS: #Basophils 0.1 thou/uL (0.0-0.2); #Eosinphils 0.2 thou/uL (0.0-0.7); #Lymphocytes 2.5 thou/uL (1.20-3.40); #Neutrophils 6.8 thou/uL (1.40-6.50); %Basophils 0.5 % (0.0-1.0); %Eosinophils 1.8 % (0.0-10.0); %Lymphocytes 23.7 % (21.0-51.0); %Monocytes 9.6 % (0.0-10.0); %Neutrophils 64.3 % (42.0-75.0); Hemoglobin 13.8 g/dL (14.0-18.0); Mean Corpuscular HGB CONC 33.5 g/dL (32.0-36.0); Mean Corpuscular Hemoglobin 28.2 pg (27.0-31.0); Platelet Count 289 10x3/uL (130-400); RBC Distribution Width 14.7 % (11.5-14.5); White Blood Cell (WBC) Count 10.5 10x3/uL (4.8-10.8)
[2022-05-27] MEDS ORDERED: Meclizine HCl 25 MG TAB ONE ×2 (01:18→01:19)
[2022-05-27 01:20] LABS: ALT (SGPT) 34 U/L (8-55); AST (SGOT) 24 U/L (5-34); Albumin 3.7 g/dL (3.4-4.8); Alkaline Phosphatase 133 U/L (40-110); Anion Gap 12 mmol/L (10-20); BUN (Urea Nitrogen) 21 mg/dL (8.4-25.7); Calc. Creatinine Clearance 0 mL/min (70-130); Calcium 8.9 mg/dL (7.8-10.44); Carbon Dioxide 21 mmol/L (23-31); Chloride 109 mmol/L (98-107); Estimated GFR 50; Globulin 3.4 g/dL (2.4-3.5); Glucose 113 mg/dL (83-110); Potassium 4.1 mmol/L (3.5-5.1); Protein, Total 7.1 g/dL (5.8-8.1); Sodium 138 mmol/L (136-145)
[2022-05-27] MEDS ORDERED: Proparacaine 0.5% Opth 15 ML BOT ONE (01:26)
[2022-05-27] MEDS ORDERED: hydrALAZINE 25 MG TAB ONE (01:54)
[2022-05-27 04:59] LABS: Bilirubin, Total 0.3 mg/dL (0.2-1.2)
== END 2022-05-27 02:45 | disposition home or self-care (01) ==
LOC: ERS 23:54
DX: R51.9 Headache, unspecified (principal); I12.9 Hypertensive chronic kidney disease with stage 1 through stage 4 chronic kidney disease, or unspecified chronic kidney disease; N18.9 Chronic kidney disease, unspecified
CPT/HCPCS: 70450; 80053; 84484; 85025; 93005